=== PATIENT | female | born 1990 | race African-American/Black ===

== ENCOUNTER 2016-12-21 16:11 | Emergency (ER) | payer SELFPAY ==
[~2016-12-21] VITALS: Ht 167.6 cm; Wt 100.0 kg
[2016-12-21 16:13] VITALS: BP 155/94; PULSE 96; RESP 20; TEMP 98; O2SAT 99
[2016-12-21] MEDS ORDERED: SODIUM CHLOR 0.9% 1000 ML INJ 1,000 ML IV SCH (18:08)
--- NOTE | 2016-12-21 18:15 | PD ---
HPI Chief Complaint: GI Complaint Time Seen by Provider: 18:11 Travel History International Travel<30 days: No Contact w/Intl Traveler<30days: No Traveled to known affect area: No History of Present Illness HPI 26 year old female presents emergency department with chief complaint of lower abdominal cramping and diarrhea for 4 days. She reports 4-6 episodes of diarrhea per day for the last 4 days. She reports the stool is loose and watery. No blood in stool. She reports only one episode today. She reports that she had upper respiratory-like illness several days prior to the diarrhea. She denies fever or chills. No one at home has similar symptoms. She denies nausea or vomiting. [facility] Past Medical History Medical History: Denies Significant Hx ?: Not Social History Tobacco Use: No Allergies-Medications (Allergen,Severity, Reaction): Coded Allergies: No Known Allergies (Unverified , 12/21/16) Review of Systems Except as stated in HPI: all other systems reviewed are Neg General / Constitutional: No: Fever Eyes: No: Visual changes HENT: No: Headaches Cardiovascular: No: Chest Pain or Discomfort Respiratory: No: Shortness of Breath Gastrointestinal: Positive: Diarrhea, No: Abdominal Pain Genitourinary: No: Dysuria Skin: No Rash Physical Exam Narrative GENERAL: Alert, well-appearing female in no acute distress. SKIN: Focused skin assessment warm/dry. HEAD: Atraumatic. Normocephalic. EYES: Pupils equal and round. No scleral icterus. No injection or drainage. ENT: No nasal bleeding or discharge. Mucous membranes pink and moist. NECK: Trachea midline. No JVD. CARDIOVASCULAR: Regular rate and rhythm. No murmur appreciated. RESPIRATORY: No accessory muscle use. Clear to auscultation. Breath sounds equal bilaterally. GASTROINTESTINAL: Abdomen soft, non-tender, nondistended. Hepatic and splenic margins not palpable. No CVA tenderness MUSCULOSKELETAL: No obvious deformities. No clubbing. No cyanosis. No edema. NEUROLOGICAL: Awake and alert. No obvious cranial nerve deficits. Motor grossly within normal limits. Normal speech. PSYCHIATRIC: Appropriate mood and affect; insight and judgment normal. Data Data Last Documented VS Vital Signs Date Time Temp Pulse Resp B/P Pulse Ox O2 Delivery O2 Flow Rate FiO2 12/21/16 19:35 16 12/21/16 19:34 81 124/81 100 Room Air 12/21/16 16:13 98.0 Orders Basic Metabolic Panel (Bmp) (12/21/16 18:08) Complete Blood Count With Diff (12/21/16 18:08) Urinalysis - C+S If Indicated (12/21/16 18:08) Iv Access Insert/Monitor (12/21/16 18:08) Sodium Chlor 0.9% 1000 Ml Inj (Ns 1000 M (12/21/16 18:08) Ed Urine Pregnancytest Poc (12/21/16 18:08) Labs Laboratory Tests Test 12/21/16 12/21/16 18:55 19:00 White Blood Count 7.5 TH/MM3 Red Blood Count 4.67 MIL/MM3 Hemoglobin 10.6 GM/DL Hematocrit 33.5 % Mean Corpuscular Volume 71.7 FL Mean Corpuscular Hemoglobin 22.8 PG Mean Corpuscular Hemoglobin 31.8 % Concent Red Cell Distribution Width 17.7 % Platelet Count 360 TH/MM3 Mean Platelet Volume 9.5 FL Neutrophils (%) (Auto) 42.0 % Lymphocytes (%) (Auto) 45.0 % Monocytes (%) (Auto) 8.9 % Eosinophils (%) (Auto) 3.7 % Basophils (%) (Auto) 0.4 % Neutrophils # (Auto) 3.1 TH/MM3 Lymphocytes # (Auto) 3.4 TH/MM3 Monocytes # (Auto) 0.7 TH/MM3 Eosinophils # (Auto) 0.3 TH/MM3 Basophils # (Auto) 0.0 TH/MM3 CBC Comment AUTO DIFF Differential Comment AUTO DIFF CONFIRMED Platelet Estimate NORMAL Platelet Morphology Comment NORMAL Sodium Level 136 MEQ/L Potassium Level 4.1 MEQ/L Chloride Level 104 MEQ/L Carbon Dioxide Level 24.8 MEQ/L Anion Gap 7 MEQ/L Blood Urea Nitrogen 10 MG/DL Creatinine 0.64 MG/DL Estimat Glomerular Filtration 136 ML/MIN Rate Random Glucose 83 MG/DL Calcium Level 8.7 MG/DL Urine Color YELLOW Urine Turbidity CLEAR Urine pH 6.0 Urine Specific [place] 1.016 Urine Protein NEG mg/dL Urine Glucose (UA) NEG mg/dL Urine Ketones NEG mg/dL Urine Occult Blood TRACE Urine Nitrite NEG Urine Bilirubin NEG Urine Urobilinogen LESS THAN 2.0 MG/DL Urine Leukocyte Esterase NEG Urine RBC 1 /hpf Urine WBC 1 /hpf Urine Squamous Epithelial 2 /hpf Cells Urine Bacteria RARE /hpf Urine Mucus FEW /lpf Microscopic Urinalysis Comment CULT NOT INDICATED MDM Medical Decision Making Medical Screen Exam Complete: Yes Emergency Medical Condition: Yes Differential Diagnosis Gastroenteritis, IBS, electrolyte abnormality Narrative Course 26 old female presents emergency department with chief complaint of lower abdominal cramping and diarrhea for 4 days. She reports several days prior to the diarrhea she had upper respiratory-like illness. Patient's physical exam is reassuring. Her abdomen is soft and nontender. This is likely viral gastroenteritis. IV established, labs ordered and pending, UA pending, IV fluids ordered. UA: Few RBCs, no leuk CBC: Mild anemia hemoglobin 10.1 patient instructed to follow up with her primary care doctor. BMP: Unremarkable Patient was instructed to take [id number] Imodium as needed for diarrhea. Rest and drink plenty of fluids. Follow up with her primary care doctor. Return to emergency department if she developed no worsening symptoms. Diagnosis Primary Impression: Diarrhea Qualified Code: R19.7 - Diarrhea, unspecified type Referrals: Primary Care Physician Additional Instructions: Rest and drink plenty of fluids. Take the Imodium as needed for diarrhea. Follow-up with her primary care doctor. Return to the emergency department he did develop new or worsening symptoms. Disposition: 01 DISCHARGE HOME Condition: Stable Aminta Ceron Dec 21, 2016 18:15
[2016-12-21 19:34] VITALS: BP 124/81; PULSE 81; RESP 16; O2SAT 100
[2016-12-21 19:35] LABS: AUTOMATED NEUTROPHIL # 3.1 TH/MM3 (1.8-7.7); BASOPHIL % 0.4 % (0.0-2.0); EOSINOPHIL # 0.3 TH/MM3 (0-0.4); EOSINOPHIL % 3.7 % (0.0-4.0); HEMATOCRIT 33.5 % (35.0-46.0); HEMO FLAGS AUTO DIFF; LYMPHOCYTE # 3.4 TH/MM3 (1.0-4.8); MEAN CELL VOLUME 71.7 FL (80.0-100.0); MEAN CORPUSCULAR HEMOGLOBIN 22.8 PG (27.0-34.0); MEAN CORPUSCULAR HGB CONC 31.8 % (32.0-36.0); MONO % 8.9 % (0.0-8.0); PLATELET COUNT 360 TH/MM3 (150-450); RED BLOOD COUNT 4.67 MIL/MM3 (4.00-5.30); RED CELL DISTRIBUTION WIDTH 17.7 % (11.6-17.2); WHITE BLOOD COUNT 7.5 TH/MM3 (4.0-11.0)
[2016-12-21 20:04] LABS: BACTERIA, URINE RARE /hpf; BLOOD, URINE TRACE (NEG); COMMENT (UR) CULT NOT INDICATED; CULTURE IF INDICATED CULT NOT INDICATED; GLUCOSE,URINE NEG (NEG); KETONE, URINE NEG (NEG); MUCUS URINE FEW /lpf (OCC); NITRITE,URINE NEG (NEG); SQUAMOUS EPITHELIAL CELL URINE 2 /hpf (0-5); URINE COLOR YELLOW (YELLW/STRAW)
[2016-12-21 20:06] LABS: BICARBONATE 24.8 MEQ/L (21.0-32.0)
[2016-12-21 20:08] LABS: POTASSIUM 4.1 MEQ/L (3.5-5.1)
[2016-12-21 20:19] LABS: PLATELET ESTIMATE SMEAR NORMAL (NORMAL); PLATELET MORPHOLOGY NORMAL (NORMAL); SCAN/DIFF AUTO DIFF CONFIRMED
== END 2016-12-21 20:49 | disposition home or self-care (01) ==
LOC: NEPD 16:11
DX: R19.7 Diarrhea, unspecified (principal)
CPT/HCPCS: 80048; 81001; 84703; 85025; 99282; J7030